=== PATIENT | female | born 1960 | race Caucasian/White ===

== ENCOUNTER 2016-11-03 17:15 | Inpatient (IN) | payer MEDICAID ==
[~2016-11-03] VITALS: Ht 152.4 cm; Wt 41.3 kg
[2016-11-03] MEDS ORDERED: HALOPERIDOL 5 MG TABLET PO PRN (19:45)
[2016-11-03 20:00] VITALS: BP 104/69
[2016-11-03] MEDS ORDERED: METO25 PO (20:14)
[2016-11-03] MEDS ORDERED: PNEUMOCOCCAL VACCINE POLYVALENT 0.5 ML VIAL [PPSV23] IM ONE (20:30)
[2016-11-03] MEDS: ZOLPIDEM TARTRATE 10 MG TABLET PO PRN (21:01)
[2016-11-04 00:25] VITALS: BP 112/71
[2016-11-04] MEDS: LORazepam 2 MG TABLET PO PRN ×4 (00:31→21:16)
[2016-11-04 08:00] VITALS: BP 112/76
[2016-11-04 16:00] VITALS: BP 108/79
[2016-11-04] MEDS: QUEtiapine FUMARATE 100 MG TABLET PO SCH (21:00)
[2016-11-05 06:43] VITALS: BP 111/71
[2016-11-05 08:39] LABS: BASOPHILS # (AUTO) 0.02 K/uL (0.00-0.20); BASOPHILS % (AUTO) 0.4 % (0.0-2.0); EOSINOPHILS # (AUTO) 0.03 K/uL (0.00-0.70); EOSINOPHILS % (AUTO) 0.58 % (1.0-6.0); HEMOGLOBIN 13.1 g/dL (12.0-16.0); LYMPHOCYTES # (AUTO) 1.8 K/uL (1.0-4.8); LYMPHOCYTES % (AUTO) 31.9 % (22.0-44.0); MEAN CORPUSCULAR HEMOGLOBIN 30.4 pg (26.0-34.0); MEAN CORPUSCULAR HGB CONC 33.7 G/dL (31.0-37.0); MEAN CORPUSCULAR VOLUME 90 fL (80-100); MONOCYTES # (AUTO) 0.4 K/uL (0.1-1.0); NEUTROPHILS # (AUTO) 3.4 K/uL (1.8-7.7); NEUTROPHILS % (AUTO) 60.1 % (40.0-70.0); PLATELET COUNT (AUTO) 396 K/uL (150-450); RED BLOOD CELL COUNT(AUTO) 4.32 MIL/uL (4.00-5.20); WHITE BLOOD COUNT (AUTO) 5.6 K/uL (4.5-11.0)
[2016-11-05 08:43] VITALS: BP 98/60
[2016-11-05 08:52] LABS: HEMOGLOBIN A1C 5.2 % (4.5-6.2)
[2016-11-05 09:05] LABS: ALANINE AMINOTRANSFERASE 40 U/L (12-78); ALBUMIN 3.5 g/dL (3.4-5.0); ANION GAP 8 mmol/L (8-16); ASPARTATE AMINOTRANSFERASE 23 U/L (15-37); BILIRUBIN,TOTAL 0.5 mg/dL (0.1-1.0); CALCIUM, TOTAL 9.2 mg/dL (8.8-10.5); CARBON DIOXIDE 31 mmol/L (22-29); CHLORIDE 104 mmol/L (98-107); CHOL/HDL RATIO 2.8 (3.9-5.7); CREATININE 0.84 mg/dL (0.60-1.30); GLOMERULAR FILTR. RATE CALC > 60 mL/min (>60); SODIUM SERUM 143 mmol/L (136-145); UREA NITROGEN, BLOOD 16 mg/dL (7-18)
[2016-11-05 09:24] LABS: THYROID STIMULATING HORMONE 0.83 uIU/mL (0.36-3.74)
[2016-11-05] MEDS: LORazepam 2 MG TABLET PO PRN ×4 (10:08→22:39)
[2016-11-05 16:23] VITALS: BP 106/67
[2016-11-05 18:26] VITALS: BP 114/68
[2016-11-05] MEDS: QUEtiapine FUMARATE 100 MG TABLET PO SCH (21:00)
[2016-11-05] MEDS: ZOLPIDEM TARTRATE 10 MG TABLET PO PRN (21:06)
[2016-11-06 06:00] VITALS: BP 101/66
[2016-11-06 08:16] VITALS: BP 102/72
[2016-11-06] MEDS: LORazepam 1 MG TABLET PO PRN ×3 (10:00→18:51)
[2016-11-06 14:45] VITALS: BP 110/68
[2016-11-06] MEDS: ACETAMINOPHEN 325 MG TABLET PO PRN ×2 (14:45→19:18)
[2016-11-06 16:16] VITALS: BP 107/67
[2016-11-06] MEDS: QUEtiapine FUMARATE 100 MG TABLET PO SCH (20:34)
[2016-11-07 01:10] VITALS: BP 105/73
[2016-11-07] MEDS: LORazepam 1 MG TABLET PO PRN ×4 (01:41→16:26)
[2016-11-07 08:31] VITALS: BP 101/59
[2016-11-07 16:10] VITALS: BP 114/79
[2016-11-07] MEDS: QUEtiapine FUMARATE 100 MG TABLET PO SCH (21:00)
[2016-11-07] MEDS: ZOLPIDEM TARTRATE 10 MG TABLET PO PRN (21:45)
[2016-11-08 02:35] VITALS: BP 106/66
[2016-11-08] MEDS: LORazepam 1 MG TABLET PO PRN ×2 (02:42→07:13)
[2016-11-08 07:12] VITALS: BP 110/62
[2016-11-08 08:16] VITALS: BP 93/73
[2016-11-08] MEDS ORDERED: HALOPERIDOL LACTATE 5 MG/ML VIAL ONE (18:57)
[2016-11-08] MEDS ORDERED: HALOPERIDOL LACTATE 5 MG/ML VIAL IM ONE (19:00)
[2016-11-08] MEDS ORDERED: LORazepam 2 MG/ML VIAL IM ONE (19:00)
[2016-11-08] MEDS: QUEtiapine FUMARATE 100 MG TABLET PO SCH (21:00)
[2016-11-09] MEDS: LORazepam 1 MG TABLET PO PRN ×4 (03:08→21:01)
[2016-11-09 03:09] VITALS: BP 111/93
[2016-11-09 09:00] VITALS: BP 95/61
[2016-11-09 16:17] VITALS: BP 108/65
[2016-11-09] MEDS: QUEtiapine FUMARATE 100 MG TABLET PO SCH (20:26)
[2016-11-10 01:38] VITALS: BP 104/76
[2016-11-10] MEDS: ZOLPIDEM TARTRATE 10 MG TABLET PO PRN (01:48)
[2016-11-10] MEDS: ACETAMINOPHEN 325 MG TABLET PO PRN ×2 (01:48→09:50)
[2016-11-10] MEDS: LORazepam 1 MG TABLET PO PRN ×4 (05:24→20:36)
[2016-11-10 09:00] VITALS: BP 94/68
[2016-11-10 09:48] VITALS: BP 97/70
[2016-11-10 10:48] VITALS: BP 98/67
[2016-11-10 11:35] VITALS: BP 122/87
[2016-11-10 16:18] VITALS: BP 101/74
[2016-11-10] MEDS ORDERED: PROMETHAZINE HCL 25 MG/ML VIAL IM ONE (20:15)
[2016-11-10] MEDS ORDERED: HALOPERIDOL LACTATE 5 MG/ML VIAL IM PRN ×2 (20:15→20:45)
[2016-11-10] MEDS: QUEtiapine FUMARATE 100 MG TABLET PO SCH (20:36)
[2016-11-11 02:07] VITALS: BP 112/67
[2016-11-11] MEDS: ZOLPIDEM TARTRATE 10 MG TABLET PO PRN (02:08)
[2016-11-11] MEDS: ACETAMINOPHEN 325 MG TABLET PO PRN ×2 (02:09→13:29)
[2016-11-11] MEDS: LORazepam 1 MG TABLET PO PRN ×3 (07:59→17:39)
[2016-11-11 08:43] VITALS: BP 110/72
[2016-11-11] MEDS: NICOTINE 14 MG/24 HOUR PATCH TD SCH (12:50)
[2016-11-11 16:00] VITALS: BP 103/74
[2016-11-11] MEDS: QUEtiapine FUMARATE 100 MG TABLET PO SCH (20:45)
[2016-11-12 04:17] VITALS: BP 100/72
[2016-11-12] MEDS: LORazepam 1 MG TABLET PO PRN ×4 (05:31→19:33)
[2016-11-12] MEDS: NICOTINE 14 MG/24 HOUR PATCH TD SCH (08:18)
[2016-11-12 09:05] VITALS: BP 104/64
[2016-11-12 17:19] VITALS: BP 97/68
[2016-11-12] MEDS: QUEtiapine FUMARATE 100 MG TABLET PO SCH (21:27)
[2016-11-12] MEDS: ZOLPIDEM TARTRATE 10 MG TABLET PO PRN (21:28)
[2016-11-13] MEDS: LORazepam 1 MG TABLET PO PRN ×4 (03:19→18:04)
[2016-11-13 05:10] VITALS: BP 114/70
[2016-11-13] MEDS: ACETAMINOPHEN 325 MG TABLET PO PRN (05:35)
[2016-11-13 08:45] VITALS: BP 112/64
[2016-11-13] MEDS: NICOTINE 14 MG/24 HOUR PATCH TD SCH (08:57)
[2016-11-13 16:00] VITALS: BP 117/77
[2016-11-13] MEDS: QUEtiapine FUMARATE 100 MG TABLET PO SCH (20:29)
[2016-11-13] MEDS: ZOLPIDEM TARTRATE 10 MG TABLET PO PRN (21:01)
[2016-11-14 03:34] VITALS: BP 101/76
[2016-11-14] MEDS: LORazepam 1 MG TABLET PO PRN ×5 (03:39→21:17)
[2016-11-14] MEDS: ACETAMINOPHEN 325 MG TABLET PO PRN (05:32)
[2016-11-14] MEDS: NICOTINE 14 MG/24 HOUR PATCH TD SCH (08:18)
[2016-11-14 08:28] VITALS: BP 100/68
[2016-11-14] MEDS ORDERED: DiphenhydrAMINE HCL 25 MG CAPSULE PO ONE (13:30)
[2016-11-14 16:06] VITALS: BP 100/64
[2016-11-14] MEDS: QUEtiapine FUMARATE 100 MG TABLET PO SCH (20:07)
[2016-11-14] MEDS: ZOLPIDEM TARTRATE 10 MG TABLET PO PRN (21:17)
[2016-11-15] MEDS: ACETAMINOPHEN 325 MG TABLET PO PRN (03:22)
[2016-11-15] MEDS: LORazepam 1 MG TABLET PO PRN ×5 (03:22→21:23)
[2016-11-15 03:23] VITALS: BP 112/63
[2016-11-15] MEDS: PHENYLEPHRINE/COCOA BUTTER RECTAL SUPPOSITORY PR PRN (06:47)
[2016-11-15] MEDS: MAGNESIUM SULFATE 454 GM BOX TP SCH (08:07)
[2016-11-15] MEDS: NICOTINE 14 MG/24 HOUR PATCH TD SCH (08:07)
[2016-11-15 08:16] VITALS: BP 98/76
[2016-11-15 16:28] VITALS: BP 110/63
[2016-11-15] MEDS: QUEtiapine FUMARATE 100 MG TABLET PO SCH (20:11)
[2016-11-15] MEDS: ZOLPIDEM TARTRATE 10 MG TABLET PO PRN (21:23)
[2016-11-16] MEDS: LORazepam 1 MG TABLET PO PRN ×2 (03:03→08:52)
[2016-11-16 07:26] VITALS: BP 100/62
[2016-11-16] MEDS: NICOTINE 14 MG/24 HOUR PATCH TD SCH (08:53)
[2016-11-16 09:06] VITALS: BP 103/65
[2016-11-16] MEDS: MAGNESIUM SULFATE 454 GM BOX TP SCH (09:48)
[2016-11-16] MEDS ORDERED: QUET100T PO (10:21)
[2016-11-16] MEDS: PHENYLEPHRINE/COCOA BUTTER RECTAL SUPPOSITORY PR PRN (12:22)
== END 2016-11-16 15:14 | disposition home or self-care (01) | DRG 750 ==
LOC: B3A 19:47
DX: F20.0 Paranoid schizophrenia (principal); F15.90 Other stimulant use, unspecified, uncomplicated; G89.4 Chronic pain syndrome; I25.10 Atherosclerotic heart disease of native coronary artery without angina pectoris; Z79.899 Other long term (current) drug therapy; Z28.21 Immunization not carried out because of patient refusal
CPT/HCPCS: 83036; 84439; 84443; 87081; 90471; J1630; J2060; J2550

== ENCOUNTER 2016-11-06 11:36 | Emergency (ER) | payer MEDICAID, OTHER ==
[~2016-11-06] VITALS: Ht 152.4 cm; Wt 38.2 kg
[~2016-11-06 11:36] MED LIST: METO25 PO
[2016-11-06 12:04] VITALS: BP 114/60
[2016-11-06 12:25] LABS: BASOPHILS % (AUTO) 1.1 % (0.0-2.0); EOSINOPHILS % (AUTO) 0.7 % (1.0-6.0); HEMATOCRIT 38.9 % (36-46); HEMOGLOBIN 13.3 g/dL (12.0-16.0); LYMPHOCYTES # (AUTO) 2.3 K/uL (1.0-4.8); LYMPHOCYTES % (AUTO) 35.9 % (22.0-44.0); MEAN CORPUSCULAR HGB CONC 34.1 G/dL (31.0-37.0); MEAN CORPUSCULAR VOLUME 91 fL (80-100); MONOCYTES # (AUTO) 0.5 K/uL (0.1-1.0); MONOCYTES % (AUTO) 7.5 % (2.0-9.0); NEUTROPHILS # (AUTO) 3.5 K/uL (1.8-7.7); NEUTROPHILS % (AUTO) 54.8 % (40.0-70.0); PLATELET COUNT (AUTO) 490 K/uL (150-450); RED BLOOD CELL COUNT(AUTO) 4.28 MIL/uL (4.00-5.20); RED CELL DISTRIBUTION WIDTH 13.8 % (11.5-14.5); WHITE BLOOD COUNT (AUTO) 6.4 K/uL (4.5-11.0)
== END 2016-11-06 13:01 | disposition home or self-care (01) ==
LOC: EMS 11:38
DX: F22 Delusional disorders (principal); K56.41 Fecal impaction; F31.9 Bipolar disorder, unspecified; I25.10 Atherosclerotic heart disease of native coronary artery without angina pectoris; I10 Essential (primary) hypertension; G89.29 Other chronic pain; F17.210 Nicotine dependence, cigarettes, uncomplicated; F15.10 Other stimulant abuse, uncomplicated
CPT/HCPCS: 74000; 99285

== ENCOUNTER 2016-12-08 18:06 | Inpatient (IN) | payer MEDICAID, OTHER ==
[~2016-12-08] VITALS: Ht 152.4 cm; Wt 41.3 kg
[~2016-12-08 18:06] MED LIST changes: -METO25 PO; +QUET100T PO
[2016-12-08] MEDS ORDERED: DiphenhydrAMINE HCL 50 MG/ML VIAL IM ONE (20:15)
[2016-12-08] MEDS ORDERED: HALOPERIDOL LACTATE 5 MG/ML VIAL IM ONE (20:15)
[2016-12-08] MEDS ORDERED: LORazepam 2 MG/ML VIAL IM ONE (20:15)
[2016-12-08 21:34] LABS: BASOPHILS # (AUTO) 0.01 K/uL (0.00-0.20); BASOPHILS % (AUTO) 0.2 % (0.0-2.0); EOSINOPHILS # (AUTO) 0.02 K/uL (0.00-0.70); EOSINOPHILS % (AUTO) 0.25 % (1.0-6.0); HEMATOCRIT 30.9 % (36-46); HEMOGLOBIN 10.5 g/dL (12.0-16.0); LYMPHOCYTES # (AUTO) 1.7 K/uL (1.0-4.8); MEAN CORPUSCULAR HEMOGLOBIN 30.3 pg (26.0-34.0); MEAN CORPUSCULAR HGB CONC 34.1 G/dL (31.0-37.0); MEAN CORPUSCULAR VOLUME 89 fL (80-100); MONOCYTES # (AUTO) 0.5 K/uL (0.1-1.0); MONOCYTES % (AUTO) 5.9 % (2.0-9.0); NEUTROPHILS # (AUTO) 5.7 K/uL (1.8-7.7); NEUTROPHILS % (AUTO) 71.7 % (40.0-70.0); PLATELET COUNT (AUTO) 303 K/uL (150-450); RED BLOOD CELL COUNT(AUTO) 3.47 MIL/uL (4.00-5.20); WHITE BLOOD COUNT (AUTO) 7.9 K/uL (4.5-11.0)
[2016-12-08 22:24] LABS: ALANINE AMINOTRANSFERASE 24 U/L (12-78); ALBUMIN 3.2 g/dL (3.4-5.0); ANION GAP 7 mmol/L (8-16); ASPARTATE AMINOTRANSFERASE 29 U/L (15-37); BILIRUBIN,TOTAL 0.3 mg/dL (0.1-1.0); CALCIUM, TOTAL 8.8 mg/dL (8.8-10.5); CARBON DIOXIDE 29 mmol/L (22-29); CHLORIDE 102 mmol/L (98-107); GLOMERULAR FILTR. RATE CALC > 60 mL/min (>60); SODIUM SERUM 138 mmol/L (136-145); TOTAL PROTEIN, SERUM 6.6 g/dL (6.4-8.2); UREA NITROGEN, BLOOD 15 mg/dL (7-18)
[2016-12-08] MEDS ORDERED: HALOPERIDOL 5 MG TABLET PO PRN (22:45)
[2016-12-08 23:12] LABS: CHOL/HDL RATIO 2.1 (3.9-5.7); THYROID STIMULATING HORMONE 1.16 uIU/mL (0.36-3.74)
[2016-12-09] MEDS: LORazepam 2 MG TABLET PO PRN ×3 (07:26→17:43)
[2016-12-09 13:47] LABS: ADD UA MICROSCOPIC NO; APPEARANCE,URINE CLEAR (CLEAR); GLUCOSE, URINE (UA) NEGATIVE (NEGATIVE); KETONES,URINE NEGATIVE (NEGATIVE); LEUKOCYTE ESTERASE ,URINE NEGATIVE (NEGATIVE); OCCULT BLOOD,URINE NEGATIVE (NEGATIVE); PH,URINE 5.5 (5.0-8.0); PROTEIN,URINE NEGATIVE (NEGATIVE)
[2016-12-09] MEDS ORDERED: POTASSIUM CHLORIDE 20 MEQ ER TABLET PO ONE (19:00)
[2016-12-09 19:53] VITALS: BP 112/77
[2016-12-09] MEDS ORDERED: INFLUENZA VIRUS VACCINE QVS 2017-18 (3YR+)/PF 60 MCG/0.5 ML SYRINGE IM ONE (20:00)
[2016-12-09] MEDS ORDERED: PNEUMOCOCCAL VACCINE POLYVALENT 0.5 ML VIAL [PPSV23] IM ONE (20:00)
[2016-12-10 00:02] VITALS: BP 114/83
[2016-12-10] MEDS: LORazepam 2 MG TABLET PO PRN (00:05)
[2016-12-10 08:50] VITALS: BP 113/76
[2016-12-10 23:05] VITALS: BP 116/74
[2016-12-11] MEDS: ZOLPIDEM TARTRATE 10 MG TABLET PO PRN ×2 (02:07→22:27)
[2016-12-11 02:55] VITALS: BP 121/59
[2016-12-11 08:15] VITALS: BP 113/76
[2016-12-11] MEDS: LORazepam 2 MG TABLET PO PRN (17:09)
[2016-12-11] MEDS: QUEtiapine FUMARATE 100 MG TABLET PO SCH (20:36)
[2016-12-11 20:44] VITALS: BP 118/73
[2016-12-11] MEDS ORDERED: BACITRACIN 28.4 GM OINTMENT TP PRN (21:30)
[2016-12-12 03:35] VITALS: BP 117/73
[2016-12-12] MEDS: LORazepam 2 MG TABLET PO PRN ×3 (03:49→16:10)
[2016-12-12 08:15] VITALS: BP 114/58
[2016-12-12] MEDS: ZOLPIDEM TARTRATE 10 MG TABLET PO PRN (20:30)
[2016-12-12] MEDS: QUEtiapine FUMARATE 100 MG TABLET PO SCH (20:37)
[2016-12-12 20:49] VITALS: BP 122/64
[2016-12-13] MEDS: LORazepam 2 MG TABLET PO PRN ×3 (03:14→12:21)
[2016-12-13 03:18] VITALS: BP 130/51
[2016-12-13] MEDS ORDERED: ACETAMINOPHEN 325 MG TABLET PO PRN (08:15)
[2016-12-13 09:00] VITALS: BP 107/66
[2016-12-13] MEDS: OLANZapine 5 MG TABLET PO SCH ×2 (10:45→21:00)
[2016-12-13] MEDS: LORazepam 1 MG TABLET PO PRN (18:16)
[2016-12-13 19:48] VITALS: BP 114/64
[2016-12-13] MEDS: ZOLPIDEM TARTRATE 10 MG TABLET PO PRN (21:42)
[2016-12-14] MEDS: LORazepam 1 MG TABLET PO PRN ×4 (01:59→19:05)
[2016-12-14 02:00] VITALS: BP 108/67
[2016-12-14 06:25] VITALS: BP 110/62
[2016-12-14 08:30] VITALS: BP 104/62
[2016-12-14] MEDS: OLANZapine 5 MG TABLET PO SCH ×2 (08:58→20:24)
[2016-12-14 16:15] VITALS: BP 110/62
[2016-12-14] MEDS: CEPHALEXIN MONOHYDRATE 500 MG CAPSULE PO SCH (17:59)
[2016-12-14] MEDS: SULFAMETHOX/TRIMETH DS 800-160 MG/TABLET PO SCH (17:59)
[2016-12-14] MEDS: ZOLPIDEM TARTRATE 10 MG TABLET PO PRN (20:25)
[2016-12-15 00:01] VITALS: BP 91/68
[2016-12-15] MEDS: LORazepam 1 MG TABLET PO PRN ×2 (05:14→12:17)
[2016-12-15 06:38] LABS: BASOPHILS % (AUTO) 0.4 % (0.0-2.0); EOSINOPHILS % (AUTO) 0.8 % (1.0-6.0); HEMATOCRIT 37.4 % (36-46); HEMOGLOBIN 12.6 g/dL (12.0-16.0); LYMPHOCYTES # (AUTO) 1.7 K/uL (1.0-4.8); MEAN CORPUSCULAR HEMOGLOBIN 30.7 pg (26.0-34.0); MEAN CORPUSCULAR HGB CONC 33.8 G/dL (31.0-37.0); MEAN CORPUSCULAR VOLUME 91 fL (80-100); MONOCYTES # (AUTO) 0.2 K/uL (0.1-1.0); MONOCYTES % (AUTO) 3.2 % (2.0-9.0); NEUTROPHILS # (AUTO) 4.9 K/uL (1.8-7.7); NEUTROPHILS % (AUTO) 71.6 % (40.0-70.0); PLATELET COUNT (AUTO) 326 K/uL (150-450); RED BLOOD CELL COUNT(AUTO) 4.11 MIL/uL (4.00-5.20); RED CELL DISTRIBUTION WIDTH 13.7 % (11.5-14.5); WHITE BLOOD COUNT (AUTO) 6.9 K/uL (4.5-11.0)
[2016-12-15 08:38] VITALS: BP 93/66
[2016-12-15] MEDS: SULFAMETHOX/TRIMETH DS 800-160 MG/TABLET PO SCH ×2 (08:54→18:11)
[2016-12-15] MEDS: OLANZapine 5 MG TABLET PO SCH ×2 (08:55→20:12)
[2016-12-15] MEDS: CEPHALEXIN MONOHYDRATE 500 MG CAPSULE PO SCH ×3 (08:55→18:11)
[2016-12-15] MEDS: ONDANSETRON HCL 4 MG TABLET PO PRN (12:13)
[2016-12-15 12:15] VITALS: BP 112/68
[2016-12-15] MEDS: ZOLPIDEM TARTRATE 10 MG TABLET PO PRN (20:12)
[2016-12-15 22:36] VITALS: BP 144/94
[2016-12-16] MEDS: LORazepam 1 MG TABLET PO PRN ×3 (00:05→16:13)
[2016-12-16 00:35] VITALS: BP 109/62
[2016-12-16 05:15] VITALS: BP 108/72
[2016-12-16 08:30] VITALS: BP 105/79
[2016-12-16] MEDS: CEPHALEXIN MONOHYDRATE 500 MG CAPSULE PO SCH ×3 (09:33→16:14)
[2016-12-16] MEDS: SULFAMETHOX/TRIMETH DS 800-160 MG/TABLET PO SCH ×2 (09:34→16:14)
[2016-12-16] MEDS: OLANZapine 5 MG TABLET PO SCH ×2 (09:34→21:35)
[2016-12-16] MEDS: ONDANSETRON HCL 4 MG TABLET PO PRN (16:13)
[2016-12-16] MEDS: NICOTINE 14 MG/24 HOUR PATCH TD SCH (16:13)
[2016-12-16 16:55] VITALS: BP 121/71
[2016-12-16] MEDS: ZOLPIDEM TARTRATE 10 MG TABLET PO PRN (21:31)
[2016-12-17 01:50] VITALS: BP 98/64
[2016-12-17] MEDS: OLANZapine 5 MG TABLET PO SCH (08:57)
[2016-12-17] MEDS: SULFAMETHOX/TRIMETH DS 800-160 MG/TABLET PO SCH (08:57)
[2016-12-17] MEDS: CEPHALEXIN MONOHYDRATE 500 MG CAPSULE PO SCH ×2 (08:57→12:26)
[2016-12-17] MEDS: NICOTINE 14 MG/24 HOUR PATCH TD SCH (08:59)
[2016-12-17] MEDS ORDERED: MULTIVITAMINS WITH MINERALS, THERAPEUTIC TABLET PO SCH (09:00)
[2016-12-17 09:42] VITALS: BP 95/72
[2016-12-17 12:20] VITALS: BP 111/69
[2016-12-17] MEDS: LORazepam 1 MG TABLET PO PRN (12:26)
[2016-12-17] MEDS ORDERED: OLAN5TAB2 PO (12:27)
[2016-12-17] MEDS ORDERED: CEPH500 PO (12:30)
[2016-12-17] MEDS ORDERED: SULF1TAB42 PO (12:33)
== END 2016-12-17 14:20 | disposition home or self-care (01) | DRG 750 ==
LOC: EMS 18:08 → B3A 12-09 18:46 → B2X 12-09 19:28 → B3A 12-09 19:28 → 3EI 12-10 17:16
DX: F20.0 Paranoid schizophrenia (principal); F15.20 Other stimulant dependence, uncomplicated; I10 Essential (primary) hypertension; L89.90 Pressure ulcer of unspecified site, unspecified stage; I25.10 Atherosclerotic heart disease of native coronary artery without angina pectoris; G89.4 Chronic pain syndrome; D64.9 Anemia, unspecified; E87.6 Hypokalemia; F17.210 Nicotine dependence, cigarettes, uncomplicated; Z88.8 Allergy status to other drugs, medicaments and biological substances; Z88.5 Allergy status to narcotic agent; Z59.0 Homelessness; Z71.51 Drug abuse counseling and surveillance of drug abuser; Z71.6 Tobacco abuse counseling; Z91.19 Patient's noncompliance with other medical treatment and regimen
CPT/HCPCS: 72195; 83036; 84443; 87070; 87081; 87205; 90471; 93005; 96372; 99285; J1200; J1630; J2060; Q0162

== ENCOUNTER 2016-12-10 08:41 | Emergency (ER) | payer MEDICAID, OTHER ==
[~2016-12-10] VITALS: Ht 149.9 cm; Wt 44.5 kg
[2016-12-10 09:14] LABS: BASOPHILS # (AUTO) 0.07 K/uL (0.00-0.20); BASOPHILS % (AUTO) 1.2 % (0.0-2.0); EOSINOPHILS # (AUTO) 0.03 K/uL (0.00-0.70); EOSINOPHILS % (AUTO) 0.46 % (1.0-6.0); HEMATOCRIT 36.7 % (36-46); HEMOGLOBIN 12.2 g/dL (12.0-16.0); LYMPHOCYTES # (AUTO) 1.8 K/uL (1.0-4.8); LYMPHOCYTES % (AUTO) 30.7 % (22.0-44.0); MEAN CORPUSCULAR HEMOGLOBIN 30.2 pg (26.0-34.0); MEAN CORPUSCULAR HGB CONC 33.1 G/dL (31.0-37.0); MEAN CORPUSCULAR VOLUME 91 fL (80-100); MONOCYTES # (AUTO) 0.4 K/uL (0.1-1.0); MONOCYTES % (AUTO) 6.3 % (2.0-9.0); NEUTROPHILS # (AUTO) 3.5 K/uL (1.8-7.7); NEUTROPHILS % (AUTO) 61.4 % (40.0-70.0); PLATELET COUNT (AUTO) 380 K/uL (150-450); RED BLOOD CELL COUNT(AUTO) 4.02 MIL/uL (4.00-5.20); RED CELL DISTRIBUTION WIDTH 13.3 % (11.5-14.5); WHITE BLOOD COUNT (AUTO) 5.8 K/uL (4.5-11.0)
[2016-12-10 09:30] LABS: CALCIUM, TOTAL 8.5 mg/dL (8.8-10.5); CARBON DIOXIDE 36 mmol/L (22-29); CREATININE 0.72 mg/dL (0.60-1.30); GLOMERULAR FILTR. RATE CALC > 60 mL/min (>60); UREA NITROGEN, BLOOD 6 mg/dL (7-18)
[2016-12-10] MEDS ORDERED: LORazepam 2 MG TABLET PO ONE (09:30)
[2016-12-10 10:49] LABS: ERYTHROCYTE SEDIMENTATION RATE 11 MM/HR (0-20)
[2016-12-10 10:53] LABS: ANION GAP -1 mmol/L (8-16); CHLORIDE 104 mmol/L (98-107); POTASSIUM 3.8 mmol/L (3.5-5.1); SODIUM SERUM 139 mmol/L (136-145)
[2016-12-10 16:16] VITALS: BP 121/71
== END 2016-12-10 17:15 | disposition other institution (70) ==
LOC: EMS 09:19 → UNDOADMIN 16:53 → 3EI 16:53 → EMS 17:15
DX: S31.000A Unspecified open wound of lower back and pelvis without penetration into retroperitoneum, initial encounter (principal); F29 Unspecified psychosis not due to a substance or known physiological condition; I10 Essential (primary) hypertension; I25.10 Atherosclerotic heart disease of native coronary artery without angina pectoris; F17.210 Nicotine dependence, cigarettes, uncomplicated; F15.90 Other stimulant use, unspecified, uncomplicated; Z88.6 Allergy status to analgesic agent; Z88.5 Allergy status to narcotic agent; Z88.8 Allergy status to other drugs, medicaments and biological substances; W50.1XXA Accidental kick by another person, initial encounter; Y93.89 Activity, other specified; Y92.89 Other specified places as the place of occurrence of the external cause; Y99.8 Other external cause status
CPT/HCPCS: 72220; 85651; 99285